=== PATIENT | male | born 1975 | race Caucasian/White ===

== ENCOUNTER 2023-07-19 19:24 | Emergency (ER) | payer OTHER ==
[2023-07-19 19:35] VITALS: BP 90/63; PULSE 95; RESP 18; TEMP 98.4; BMI 31.4
[2023-07-19] MEDS ORDERED: IBUPROFEN 400 MG TABLET (FP) PO ONE (21:19)
[2023-07-19] MEDS: IBUPROFEN 400 MG TABLET (FP) PO ONE (21:21)
== END 2023-07-19 21:55 | disposition home or self-care (01) ==
LOC: JERFT 19:24
DX: S81.801A Unspecified open wound, right lower leg, initial encounter (principal); X58.XXXA Exposure to other specified factors, initial encounter
CPT/HCPCS: 99283-25

== ENCOUNTER 2023-07-24 12:43 | Emergency (ER) | payer OTHER ==
[2023-07-24 12:58] VITALS: BP 133/96; PULSE 87; RESP 18; TEMP 97.8; BMI 31.4
== END 2023-07-24 14:45 | disposition left against medical advice (07) ==
LOC: JERFT 12:43
DX: S81.801D Unspecified open wound, right lower leg, subsequent encounter (principal)
CPT/HCPCS: 99281-25